=== PATIENT | female | born 1970 | race Caucasian/White ===

== ENCOUNTER 2018-06-03 14:48 | Emergency (ER) | payer BC ==
[2018-06-03] MEDS ORDERED: NS 0.9% 1000 ML* 1,000 ML IV ONE (14:54)
--- NOTE | 2018-06-03 14:56 | ED ---
Neurological HPI - HPI Summary HPI Summary: This is yaoe Caty Webster documenting for attending Bk Cabezas MD. This patient is a 47 year old F BIBA to [facility] accompanied by her daughter with a chief complaint of one-sided weakness and slurred speech since 08:40. Per EMS , the patient was walking her dog at 08:00 this morning when she began to feel odd and experienced pain in her left arm. The patient then went to sleep at 08: 40 and at 13:20 her family found her exhibiting slurred speech, left-sided weakness, and inappropriate speech. EMS note that the patients slurred speech resolved prior to arrival at [facility]. Symptoms aggravated by nothing. Symptoms alleviated by nothing. Patient reports numbness and tingling in her left side. Patient has hx of asthma, depression, and anxiety. Patient takes Celexa. - History of Current Complaint Stated Complaint: STROKE LIKE SYMPTOMS Hx Obtained From: Patient Onset/Duration: Sudden Onset, Started hours ago, Resolved Timing: Constant Current Severity: Mild Neurological Deficit Location: LUE, E Character: Numbness/Tingling, Motor Weakness, Lethargy - Allergy/Home Medications Allergies/Adverse Reactions: Allergies Allergy/AdvReac Type Severity Reaction Status Date / Time Sulfa (Sulfonamide Allergy Rash Verified 06/03/18 15:37 Antibiotics) PMH/Surg Hx/FS Hx/Imm Hx Endocrine/Hematology History: Denies: Hx Diabetes Cardiovascular History: Denies: Hx Hypertension Respiratory History: Reports: Hx Asthma Neurological History: Denies: Hx CVA Psychiatric History: Reports: Hx Anxiety, Hx Depression - Family History Known Family History: Positive: Other - CVA Review of Systems Negative: Fever Negative: Epistaxis Negative: Cough Positive: Weakness - left sided weakness, Numbness - numbness and tingling in left side, Slurred Speech All Other Systems Reviewed And Are Negative: Yes Physical Exam - Summary Physical Exam Summary: VITAL SIGNS: Reviewed. GENERAL: Patient is a well-developed and nourished FEMALE who is lying comfortable in the stretcher.Patient is not in any acute respiratory distress. HEAD AND FACE: No signs of trauma. No ecchymosis, hematomas or skull depressions. No sinus tenderness. Some facial droop in right side EYES: PERRLA, EOMI x 2, No injected conjunctiva, no nystagmus. No photophobia. EARS: Hearing grossly intact. Ear canals and tympanic membranes are within normal limits. MOUTH: Oropharynx within normal limits. Dry oral mucosa NECK: Supple, trachea is midline, no adenopathy, no JVD, no carotid bruit, no c- spine tenderness, neck with full ROM. No meningeal signs, no Kernig's or brudzinskis signs. CHEST: Symmetric, no tenderness at palpation LUNGS: Clear to auscultation bilaterally. No wheezing or crackles. CVS: Regular rate and rhythm, S1 and S2 present, no murmurs or gallops appreciated. ABDOMEN: Soft, non-tender. No signs of distention. No rebound no guarding, and no masses palpated. Bowel sounds are normal. EXTREMITIES: FROM in all major joints, no edema, no cyanosis or clubbing. NEURO: Alert and oriented x 3. No acute neurological deficits. Speech is normal and follows commands. Left side weakness. NIH 7 SKIN: Dry and warm GCS: 15 Triage Information Reviewed: Yes Vital Signs Reviewed: Yes Diagnostics - Laboratory Result Diagrams: 06/03/18 15:03 06/03/18 15:03 Lab Statement: Any lab studies that have been ordered have been reviewed, and results considered in the medical decision making process. - Radiology CXR Xray Interpretation: No Acute Changes - IMPRESSION: NO ACTIVE DISEASE. Dr. Cabezas has reviewed this report. Radiology Interpretation Completed By: Radiologist - CT CT Brain CT Interpretation: No Acute Changes - Impression: no acute intracranial findings. Dr. Cabezas was called and notified of results at 15:12. Dr. Cabezas has reviewed this report. CT Interpretation Completed By: Radiologist Head CTA CT Interpretation: No Acute Changes - IMPRESSION: PROBABLE FIBROMUSCULAR DYSPLASIA OF EXTRACRANIAL PORTIONS OF BOTH INTERNAL CAROTID ARTERIES. NO EVIDENCE OF ANEURYSM OR BRANCH OCCLUSION. Dr. Cabezas has reviewed this report. CT Interpretation Completed By: Radiologist - EKG 14:56 Cardiac Rate: NL - at 73 bpm EKG Rhythm: Sinus Rhythm ST Segment: Normal EKG Interpretation: Sinus rhythm at [address] elevations NIH Scale - NIH Scale Level of Consciousness: Alert/Keenly Responsive Ask Patient the Month and His/Her Age: Both Correct Ask Pt to Open/Close Eyes and Check And Transfer Beader/Release Non-Paretic Hand: Both Correctly Best Gaze (Only Horizontal Eye Movement): Normal Visual Field Testing: No Visual Loss Facial Paresis-Pt to Smile & Close Eyes or Grimace Symmetry: Minor Paralysis Motor Function - Right Arm: No Drift-Holds 10 Seconds Motor Function - Left Arm: Effort Against [place] Motor Function - Right Leg: No Drift-Holds 10 Seconds Motor Function - Left Leg: Effort Against [place] Limb Ataxia-Must be out of Proportion to Weakness Present: Present in Two Limbs Sensory (Use Pinprick to Test Arms/Legs/Trunk/Face): Normal Best Language (Describe Picture, Name Items): No Aphasia Dysarthria (Read Several Words): Normal Extinction and Inattention: No Abnormality Total Score: 7 Course/Dx - Course Assessment/Plan: This patient is a 47-year-old female who presents to the emergency department via ambulance with a chief complaint of having left-sided weakness, slurred speech and facial drooping. The patient reports that this morning she woke up approximately 8:30 AM and she was having some left shoulder pain. The patient went back to sleep and then at 12:30 she was awakened by the daughter when she noticed that the patient has slurred speech, facial drooping, and left-sided weakness. The patients daughter called 911 and the patient was going to the emergency department. Patient has past medical history significant for anxiety, depression, and asthma. The patient reports the asthma is really well controlled. In the physical exam the patient has and left -sided weakness, she is has a slight facial drooping in the right side and slight slurred speech. The NIH score is equal to 7. Bethanie bach was called at 2:56 PM. I also ordered a CT a of the brain and neck since the NIH score is more than 6. We called [facility] at the same time for a telestroke conference. EKG shows a normal sinus rhythm with no ST elevations. At 3:10 Dr. Dorman reported head CT is negative for acute stroke. At 3:135 I discussed the case with Dr. Alexandra (neurologist from [facility]) and advices that seemed there is no onset of symptoms the patient would not be a candidate for TPA. The patient also seems to be also the window if we take the onset of symptoms at 8:30 AM. She will be awaiting for the CTA of head and neck to be pushed to their system. Disposition for transfer will be done based on the results of the CT the head and neck. The patient will be given an aspirin after the patient has a swallow evaluation. CTA head and neck IMPRESSION: PROBABLE FIBROMUSCULAR DYSPLASIA OF EXTRACRANIAL PORTIONS OF BOTH INTERNAL CAROTID ARTERIES. NO EVIDENCE OF ANEURYSM OR BRANCH OCCLUSION. I discussed this with Dr. Obrien neurologists from [facility] and he reports that the CTA is negative therefore he recommends for the patient admitted to [facility] for follow-up with [facility] neurology. I discussed the case with Dr. Root from the hospitalist services who will be admitted the patient to his services for further workup and management. Dr. Montes will consult for this patient. Dr. Montes consulted with the patient. He recommends for the patient to be admitted to the hospitalist. The patient has improvements, the patient is able to speak fluently at this point. Dr. Montes order an MRI of the brain, carotid ultrasounds and an echocardiogram. The patient continued to be here hemodynamically stable she continues to improve and she is alert and oriented 3. The patient understands and agrees with the plan of care. - Differential Dx Differential Diagnoses Neuro: Positive: Cerebrovascular Accident, Seizure Disorder, Transient Ischemic Attack, Vasovagal Reaction - Diagnoses Provider Diagnoses: Ischemic cerebrovascular accident (CVA) During the Visit The Following Alert/Code Occurred: Code Stout - called at 14:56 - Physician Notifications Discussed Care Of Patient With: Nidhi Alexandra Time Discussed With Above Provider: 15:15 Instructed by Provider To: Other - Dr. Alexandra, neurologist at [facility], notes that due to the time at which the symptoms began the patient is not a candidate for TPA. She will look at the imaging and then make a decision about whether the patient will need further tx. At this time she only recommends ASA. Discussed patient care with Dr. Obrien, neurologist at [facility], at 16:11. Dr. Obrien reviewed Head CTA and did not observe any occlusions. He recommends the patient be admitted to [facility]. Discussed care with Dr. Root, hospitalist, at 16: 33. She agreed to admit patient to [facility]. Discussed care with Dr. Montes, neurologist at [facility], at 16:46 and he agreed to come see the patient. - Critical Care Time Critical Care Time: 75-104 min Discharge - Sign-Out/Discharge Documenting (check all that apply): Patient Departure - Discharge Plan Condition: Stable Disposition: ADMITTED TO [facility] Referrals: Mamta Sanabria MD [Primary Care Provider] - - Billing Disposition and Condition Condition: STABLE Disposition: Admitted to [facility]
[2018-06-03] MEDS ORDERED: Iodixanol* (CONTRAST) 320 MG/ML 100 ML SDV IV ONE (15:04)
[2018-06-03 15:08] LABS: ABS Basophils 0 10^3/ul (0-0.2); ABS Eosinophils 0.5 10^3/ul (0-0.6); ABS Lymphocytes 1.6 10^3/ul (1.0-4.8); ABS Monocytes 0.5 10^3/ul (0-0.8); ABS Nucleated RBC 0 10^3/ul; Eosinophil % 8.4 % (0-6); Hematocrit 40 % (35-47); Hemoglobin 13.5 g/dl (12.0-16.0); Lymphocyte % 28.3 % (25-47); Mean Corpuscular HGB Conc 33 g/dl (31-36); Mean Corpuscular Hemoglobin 31 pg (27-31); Mean Corpuscular Volume 93 fL (80-97); Mean Platelet Volume 7.5 um3 (7.4-10.4); Nucleated Red Blood Cells % 0.1; Platelet Count 285 10^3/ul (150-450); Red Blood Count 4.35 10^6/ul (4.00-5.40); Red Cell Distribution Width 15 % (10.5-15); White Blood Count 5.6 10^3/ul (3.5-10.8)
[2018-06-03 15:16] LABS: INR 0.92 (0.77-1.02)
--- NOTE | 2018-06-03 15:16 | RAD ---
INDICATION: Neurologic change. Code mclaughlin COMPARISON: None TECHNIQUE: Noncontrast axial source images were acquired from the skull base to the vertex. FINDINGS: Ventricles/sulci: The ventricles and cisterns are normal in size and configuration for age. Brain parenchyma: There is no focal parenchymal finding, evidence of intracranial mass, or intracranial mass effect. Intracranial hemorrhage:None. Extra-axial spaces: There are no abnormal extra axial fluid collections or evidence of extra-axial mass. Calvarium: There is no calvarial fracture or other calvarial abnormality. Scalp: There is no evidence of scalp or extracalvarial soft tissue abnormality. Paranasal sinuses/mastoid: The paranasal sinuses and mastoid air cells are clear. Other: None. IMPRESSION: No acute intracranial findings. Findings called to ED at 1510 hours
[2018-06-03 15:27] LABS: EGFR Non-African American 100.3 (>60)
--- NOTE | 2018-06-03 15:33 | RAD ---
INDICATION: Left-sided weakness. COMPARISON: CT brain same date TECHNIQUE: Axial source images were acquired with coronal and sagittal reconstructions. CT angiographic technique was utilized with injection of 80 mL Visipaque 320. FINDINGS: Aortic arch: There are no CT angiogram abnormalities of the arch or the great vessels arising from the arch. Right carotid: The common carotid artery, carotid bifurcation, extracranial portions of the internal carotid artery, carotid artery at the skull base, carotid siphon, and carotid termination appear widely patent. There are subtle findings suggestive of a muscular dysplasia of the internal carotid artery. Left carotid:The common carotid artery, carotid bifurcation, extracranial portions of the internal carotid artery, carotid artery at the skull base, carotid siphon, and carotid termination appear widely patent. There are subtle findings suggestive of fibromuscular dysplasia of the internal carotid artery. Right middle and anterior cerebral arteries: There are no CT angiographic abnormalities of the middle or anterior cerebral arteries. Left middle and anterior cerebral arteries: There are no CT angiographic abnormalities of the middle or anterior cerebral arteries Right vertebral: The CT angiographic appearance of the vertebral artery is normal. Left vertebral: The CT angiographic appearance of the vertebral artery is normal. Basilar artery: The basilar artery and basilar tip appear normal. Posterior cerebral arteries: The distal distribution of the right and left posterior cerebral arteries is normal. [place] of [place]: The CT angiographic appearance of the [place] of [place] is normal. Source images show no evidence of mass or adenopathy within the neck. There are no focal brain parenchymal abnormalities or abnormal areas of enhancement. IMPRESSION: PROBABLE FIBROMUSCULAR DYSPLASIA OF EXTRACRANIAL PORTIONS OF BOTH INTERNAL CAROTID ARTERIES. NO EVIDENCE OF ANEURYSM OR BRANCH OCCLUSION. CPT II Codes: 3100F PQRS
[2018-06-03] MEDS ORDERED: NS 0.9% 1000 ML* 1,000 ML IV SCH (15:45)
--- NOTE | 2018-06-03 15:53 | RAD ---
INDICATION: Neurologic change. Code mclaughlin. COMPARISON: None TECHNIQUE: An AP portable view obtained at 1541 hours is submitted. FINDINGS: Bones/Soft Tissues: There are no acute bony findings. Cardiomediastinal: The cardiomediastinal silhouette is normal. Lungs: There are no infiltrates. Pleura: There are no pleural effusions. Other: None IMPRESSION: NO ACTIVE DISEASE.
[2018-06-03 16:16] LABS: Urine Appearance Clear; Urine Blood Negative (Negative); Urine Color Straw; Urine Ketones Negative (Negative); Urine Protein Negative (Negative); Urine Specific Gravity 1.019 (1.010-1.030); Urine Urobilinogen Negative (Negative)
[2018-06-03] MEDS ORDERED: Aspirin 81 mg CHEW TAB* 81 MG TAB.CHEW PO ONE (16:49)
[2018-06-03] MEDS ORDERED: Acetaminophen TAB* 325 MG PO PRN (17:16)
[2018-06-03] MEDS ORDERED: Ondansetron INJ* 2 MG/ML VIAL IV PRN (17:16)
[2018-06-03] MEDS ORDERED: Albuterol 2.5 MG/3 ML NEB.SOL* (0.083%) INH PRN (17:36)
--- NOTE | 2018-06-03 19:15 | RAD ---
INDICATION: Pain and swelling. COMPARISON: None TECHNIQUE: Duplex interrogation of the Lowerextremity was performed. FINDINGS: Deep veins: The common femoral, great saphenous, profunda femoris, proximal, mid, and distal deep femoral, popliteal, posterior tibial, and peroneal veins are patent. There is normal compressibility, augmentation, and phasic flow. Superficial veins: There are no findings of superficial thrombophlebitis. Popliteal fossa:There is no evidence of a popliteal cyst. Soft tissues:There are no soft tissue abnormalities. IMPRESSION: Normal examination. No evidence of deep venous thrombosis
[2018-06-03] MEDS ORDERED: Atorvastatin* 20 MG TAB PO SCH (21:00)
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
[2018-06-03] MEDS ORDERED: Heparin VIAL(*) 5000 UNITS/ML VIAL (FIVE THOUSAND) SUBCUT SCH (22:00)
[2018-06-03] MEDS ORDERED: levETIRAcetam IV* 750 MG in NS 0.9% 100 ML* 100 ML IVPB ONE (22:15)
[2018-06-03 22:55] VITALS: BP 134/83
--- NOTE | 2018-06-03 23:18 | HP ---
HISTORY AND PHYSICAL/TRANSFER SUMMARY: ADDENDUM: At approximately 10 p.m., this provider was called into the patient's room for an episode of unresponsiveness that occurred during the middle of conversation with the patient having "a glazed look" on her face and afterwards having difficulty speaking consistent with previous episode of dysarthria. The patient had quick recovery from this episode; however, the patient's previous neurological deficits were worsened after having improved. Again, this was discussed with Dr. Roshan Montes of Neurology and it was decided that the patient would be loaded with Keppra before she was transported. This was discussed with the family and the patient and they are in agreement and this information will be passed on to the providers at [facility] upon their arrival. The patient had electrocardiogram, which was negative. The patient has no irregularities on her telemetry. The patient had no involuntary movements. The patient during this episode had an unexplained pain in her left hip, which quickly arrived and dissipated. The patient states it was a stabbing pain which radiated up from her hip into her abdomen. The patient never had a pain like this before in her life. The patient did not have this pain with her first episode this morning. MAGEN FINNEGAN [id number]/[facility] #: [id number] GENA
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
[2018-06-04] MEDS ORDERED: Clopidogrel TAB* 75 MG PO SCH (09:00)
[2018-06-04] MEDS ORDERED: Citalopram TAB* 40 MG PO SCH (09:00)
== END 2018-06-03 22:00 | disposition short-term general hospital (02) | DRG 65 ==
LOC: ED 14:48 → UNDOADMIN 17:16 → MEDTELE 17:16 → ED 22:00 → UNDODISIN 22:36
DX: I63.9 Cerebral infarction, unspecified (principal); G81.94 Hemiplegia, unspecified affecting left nondominant side; R29.810 Facial weakness; R47.81 Slurred speech; G43.909 Migraine, unspecified, not intractable, without status migrainosus; J45.20 Mild intermittent asthma, uncomplicated; F32.9 Major depressive disorder, single episode, unspecified; F41.9 Anxiety disorder, unspecified; G83.89 Other specified paralytic syndromes; Z79.899 Other long term (current) drug therapy; Z88.2 Allergy status to sulfonamides; Z82.5 Family history of asthma and other chronic lower respiratory diseases; Z83.3 Family history of diabetes mellitus; Z82.49 Family history of ischemic heart disease and other diseases of the circulatory system; Z81.8 Family history of other mental and behavioral disorders
CPT/HCPCS: 36415; 70450; 70496; 70498; 71045; 80053; 80061; 81003; 83036; 83605; 84484; 85025; 85610; 85730; 86850; 86900; 86901; 93005; 93970; 96374; 99284; A9270-GY; Q9967